=== PATIENT | male | born 1985 | race Caucasian/White ===

== ENCOUNTER 2018-06-20 00:47 | Emergency (ER) | payer SELFPAY ==
[2018-06-20] MEDS ORDERED: NALOXONE HCL 0.4 MG/ML VIAL IM ONE (01:16)
[2018-06-20] MEDS ORDERED: NALOXONE HCL 0.4 MG/ML VIAL ONE (01:21)
[2018-06-20 02:00] VITALS: BP 139/78; PULSE 99; TEMP 97.7; BMI 23.7
--- NOTE | 2018-06-20 04:14 | PDOC ---
Documentation entered by Floridalma Simmons SCRIBE, acting as scribe for Kristyn Buckley MD. Kritsyn Buckley MD: This documentation has been prepared by the scribe, Floridalma Simmons SCRIBE, under my direction and personally reviewed by me in its entirety. I confirm that the documentation accurately reflects all work, treatment, procedures, and medical decision making performed by me. History of Present Illness - General Stated Complaint: OVERDOSE Time Seen by Provider: 06/20/18 01:04 History Source: Patient Exam Limitations: No Limitations - History of Present Illness Initial Comments: 06/20/18 01:09 The patient is a 32 year old male presents to the emergency department via EMS s /p passing out. The patient is visiting from [place], came for a wedding on Thursday. The patient reports he was at the wedding and was drinking heavily and states someone gave him some brown powder to sniff, which he states was most likely heroin. The patient reports after sniffing the powder he had difficulty breathing and collapsed after. EMS reports he was given 2 dose of .2 narcan, with conscious regained. At the ER, the patient is dehydrated and is drinking water. Review of Systems - Review of Systems Able to Perform ROS?: Yes Comments:: 06/20/18 01:15 GENERAL/CONSTITUTIONAL: s/p collapsing. No fever or chills. No weakness. HEAD, EYES, EARS, NOSE AND THROAT: No change in vision. No ear pain or discharge. No sore throat. CARDIOVASCULAR: No chest pain or shortness of breath. RESPIRATORY: No cough, wheezing, or hemoptysis. GASTROINTESTINAL: No nausea, vomiting, diarrhea or constipation. GENITOURINARY: No dysuria, frequency, or change in urination. MUSCULOSKELETAL: No joint or muscle swelling or pain. No neck or back pain. SKIN: No rash NEUROLOGIC: No headache, vertigo, loss of consciousness, or change in strength/ sensation. ENDOCRINE: No increased thirst. No abnormal weight change. HEMATOLOGIC/LYMPHATIC: No anemia, easy bleeding, or history of blood clots. ALLERGIC/IMMUNOLOGIC: No hives or skin allergy. *Physical Exam - Physical Exam Comments: 06/20/18 01:16 GENERAL: Awake, alert, and fully oriented, in no acute distress HEAD: No signs of trauma EYES: PERRLA, EOMI, sclera anicteric, conjunctiva clear ENT: Auricles normal inspection, hearing grossly normal, nares patent, oropharynx clear without exudates. Moist mucosa NECK: Normal ROM, supple, no lymphadenopathy, JVD, or masses LUNGS: Breath sounds equal, clear to auscultation bilaterally. No wheezes, and no crackles HEART: +alittle tachycardia. Regular rate and rhythm, normal S1 and S2, no murmurs, rubs or gallops ABDOMEN: Soft, nontender. No guarding, no rebound. No masses EXTREMITIES: Normal range of motion, no edema. No clubbing or cyanosis. No cords, erythema, or tenderness NEUROLOGICAL: Cranial nerves II through XII grossly intact. Normal speech, normal gait SKIN: Warm, Dry, normal turgor, no rashes or lesions noted. Medical Decision Making - Medical Decision Making 06/20/18 20:38 Pt was drinking alcohol and sniffed heroin. Passed out. Now improved. Stable for discharge after hydration in the ER and 0.4mg IM narcan *DC/Admit/Observation/Transfer Diagnosis at time of Disposition: Polysubstance abuse - Discharge Dispostion Disposition: HOME Condition at time of disposition: Improved Decision to Admit order: No - Referrals - Patient Instructions Printed Discharge Instructions: Drug Abuse and Drug Addiction - Post Discharge Activity
== END 2018-06-20 01:36 | disposition home or self-care (01) ==
LOC: JER 00:47
PROC: 3E023GC Introduction of Other Therapeutic Substance into Muscle, Percutaneous Approach (ICD-10-PCS; principal; 2018-06-20)
DX: F19.10 Other psychoactive substance abuse, uncomplicated (principal); F10.10 Alcohol abuse, uncomplicated; F11.10 Opioid abuse, uncomplicated
CPT/HCPCS: 99281-25